=== PATIENT | female | born 1980 | race American Indian/Alaskan Native ===

== ENCOUNTER 2019-04-23 15:03 | Emergency (ER) | payer OTHER ==
[2019-04-23] MEDS ORDERED: OXYMETAZOLINE 0.05% NASAL SPRAY NS ONE ×2 (15:14→20:52)
[2019-04-23] MEDS ORDERED: LIDOCAINE 2%/EPINEPHRINE 1:200,000 VIAL (20 ML) INFILTRATI ONE (15:14)
[2019-04-23] MEDS ORDERED: OXYMETAZOLINE 0.05% NASAL SPRAY ONE (15:16)
--- NOTE | 2019-04-23 15:16 | Emergency Department Report ---
Chief Complaint: Nosebleed Stated Complaint: HEAVY NOSE BLEED Time Seen by Provider: 04/23/19 15:14 - HPI History of Present Illness: 38 y/o fem not p/w recurrent nose blled in rigth nostril seen at [facility] yesterday ? cauterized not on any blood thinners no hx of htn right nostril noted will pack with 2x2 afrin lido w epi tongue blade device applied to nasal bridge reassess counseled that she may require packing states not protecting airway MSE screening note: Focused history and physical exam performed. Due to findings the following was ordered: ED Disposition for MSE Condition: Stable
[2019-04-23] MEDS ORDERED: LIDOCAINE 2%/EPINEPHRINE 1:100,000 VIAL (20 ML) INFILTRATI ONE (15:18)
[2019-04-23 16:32] LABS: Hematocrit 37.8 % (30.3-42.9); Hemoglobin 12.5 gm/dl (10.1-14.3); Mean Corpuscular HGB Conc 33 % (30-34); Mean Corpuscular Volume 83 fl (79-97); Platelet Count 320 K/mm3 (140-440); Red Blood Count 4.58 M/mm3 (3.65-5.03); Red Cell Distribution Width 14.2 % (13.2-15.2)
[2019-04-23] MEDS ORDERED: amLODIPine 5 MG TAB PO ONE (20:53)
[2019-04-23] MEDS ORDERED: hydroCHLOROthiazide 25 MG TAB PO ONE (20:53)
--- NOTE | 2019-04-23 21:20 | Emergency Department Report ---
ED General Adult HPI - General Chief complaint: Nosebleed Stated complaint: HEAVY NOSE BLEED Time Seen by Provider: 04/23/19 15:14 Source: patient Mode of arrival: Ambulatory Limitations: No Limitations - History of Present Illness Initial comments: Patient presents to the emergency department with chief complaint of a nosebleed. Patient states she was recently at [facility] for nosebleed and they cauterized her nasal bleeding in the emergency department. She states at that time a blood pressure was severely elevated with the top nu mber been greater than 200. Patient states her blood pressure has been running high and does not have a diagnosis of hypertension. On her presentation to the emergency Department her blood pressure today was 198/123. She denies a headache, shortness breath, abdominal pain, chest pain. -: Sudden Severity scale (0 -10): 0 Improves with: none Worsens with: none Associated Symptoms: denies other symptoms Treatments Prior to Arrival: none - Related Data Previous Rx's Medication Instructions Recorded Last Taken Type amLODIPine [Norvasc] 10 mg PO DAILY #30 tab 04/23/19 Unknown Rx hydroCHLOROthiazide [Hctz] 12.5 mg PO QDAY #30 capsule 04/23/19 Unknown Rx Allergies Allergy/AdvReac Type Severity Reaction Status Date / Time No Known Allergies Allergy Unverified 04/23/19 15:39 ED Review of Systems ROS: Stated complaint: HEAVY NOSE BLEED Other details as noted in HPI Constitutional: denies: chills, fever Eyes: denies: eye pain, eye discharge, vision change ENT: epistaxis. denies: ear pain, throat pain Respiratory: denies: cough, shortness of breath, wheezing Cardiovascular: denies: chest pain, palpitations Endocrine: no symptoms reported Gastrointestinal: denies: abdominal pain, nausea, diarrhea Genitourinary: denies: urgency, dysuria, discharge Musculoskeletal: denies: back pain, joint swelling, arthralgia Skin: denies: rash, lesions Neurological: denies: headache, weakness, paresthesias Psychiatric: denies: anxiety, depression Hematological/Lymphatic: denies: easy bleeding, easy bruising ED Past Medical Hx - Past Medical History Previous Medical History?: No - Surgical History Past Surgical History?: No - Social History Smoking Status: Never Smoker Substance Use Type: None - Medications Home Medications: Home Medications Medication Instructions Recorded Confirmed Last Taken Type amLODIPine [Norvasc] 10 mg PO DAILY #30 tab 04/23/19 Unknown Rx hydroCHLOROthiazide [Hctz] 12.5 mg PO QDAY #30 capsule 04/23/19 Unknown Rx ED Physical Exam - General Limitations: No Limitations General appearance: alert, in no apparent distress - Head Head exam: Present: atraumatic, normocephalic - Eye Eye exam: Present: normal appearance - ENT ENT exam: Present: mucous membranes moist, other (active anterior nosebleed with clot formation sitting up) - Neck Neck exam: Present: normal inspection - Respiratory Respiratory exam: Present: normal lung sounds bilaterally. Absent: respiratory distress - Cardiovascular Cardiovascular Exam: Present: regular rate, normal rhythm. Absent: systolic murmur, diastolic murmur, rubs, gallop - GI/Abdominal GI/Abdominal exam: Present: soft, normal bowel sounds. Absent: distended, tenderness - Extremities Exam Extremities exam: Present: normal inspection - Back Exam Back exam: Present: normal inspection - Neurological Exam Neurological exam: Present: alert, oriented X3, CN II-XII intact. Absent: motor sensory deficit - Psychiatric Psychiatric exam: Present: normal affect, normal mood - Skin Skin exam: Present: warm, dry, intact, normal color. Absent: rash ED Course Vital Signs 04/23/19 04/23/19 04/23/19 15:13 18:27 20:20 Temperature 97.6 F Pulse Rate 131 H Respiratory 18 Rate Blood Pressure 198/123 Blood Pressure 157/108 [Left] O2 Sat by Pulse 98 99 Oximetry 04/23/19 04/23/19 04/23/19 20:30 20:45 21:00 Temperature Pulse Rate Respiratory Rate Blood Pressure 152/102 163/121 152/116 Blood Pressure [Left] O2 Sat by Pulse 100 98 99 Oximetry 04/23/19 21:15 Temperature Pulse Rate Respiratory Rate Blood Pressure 169/115 Blood Pressure [Left] O2 Sat by Pulse 98 Oximetry ED Medical Decision Making - Lab Data Result diagrams: 04/23/19 16:15 04/23/19 20:57 Lab Results 04/23/19 04/23/19 Range/Units 16:15 20:57 WBC 8.3 (4.5-11.0) K/mm3 RBC 4.58 (3.65-5.03) M/mm3 Hgb 12.5 (10.1-14.3) gm/dl Hct 37.8 (30.3-42.9) % MCV 83 (79-97) fl MCH 27 L (28-32) pg MCHC 33 (30-34) % RDW 14.2 (13.2-15.2) % Plt Count 320 (140-440) K/mm3 Sodium 139 (137-145) mmol/L Potassium 4.9 (3.6-5.0) mmol/L Chloride 103.9 (98-107) mmol/L Carbon Dioxide 19 L (22-30) mmol/L Anion Gap 21 mmol/L BUN 23 H (7-17) mg/dL Creatinine 0.6 L (0.7-1.2) mg/dL Estimated GFR > 60 ml/min BUN/Creatinine Ratio 38 % Glucose 87 (65-100) mg/dL Calcium 9.2 (8.4-10.2) mg/dL - Radiology Data Radiology results: report reviewed - Medical Decision Making Nosebleed resolved after Patient was given hypertensive medications Critical care attestation.: If time is entered above; I have spent that time in minutes in the direct care of this critically ill patient, excluding procedure time. ED Disposition Clinical Impression: Epistaxis, Hypertension Disposition: DC-01 TO HOME OR SELFCARE Is pt being admited?: No Does the pt Need Aspirin: No Condition: Stable Instructions: Hypertension (ED), Epistaxis (ED) Additional Instructions: Return if worse Referrals: LAWRENCE SALDIVAR MD [Primary Care Provider] - 3-5 Days Time of Disposition: 21:45
[2019-04-23 21:35] LABS: BUN/Creatinine Ratio 38; Blood Urea Nitrogen 23 mg/dL (7-17); Calcium 9.2 mg/dL (8.4-10.2); Hemolysis Index 34
[2019-04-23 22:17] VITALS: BP 170/98
== END 2019-04-23 22:17 | disposition home or self-care (01) ==
LOC: ED 15:03
DX: R04.0 Epistaxis (principal); I10 Essential (primary) hypertension; Z79.899 Other long term (current) drug therapy
CPT/HCPCS: 36415; 80048; 85027

== ENCOUNTER 2020-07-02 12:00 | Outpatient (CLI) | payer OTHER ==
[2020-07-02 07:31] VITALS: BP 213/122
== END 2020-07-02 23:59 | disposition home or self-care (01) ==
LOC: LAB 12:00
PROVIDERS: ATTEND Obstetrics & Gynecology
DX: Z01.812 Encounter for preprocedural laboratory examination (principal); Z20.822 Contact with and (suspected) exposure to COVID-19
CPT/HCPCS: 36415; 80048; 84703; 85025; U0003; G0378

== ENCOUNTER 2020-08-12 06:33 | Inpatient (IN) | payer OTHER ==
[2020-08-09 14:10] LABS: Eosinophils # (Auto) 0.1 K/mm3 (0.0-0.4); Eosinophils % (Auto) 1.7 % (0.0-4.3); Hematocrit 35.7 % (30.3-42.9); Hemoglobin 11.7 gm/dl (10.1-14.3); Lymphocytes # (Auto) 1.8 K/mm3 (1.2-5.4); Lymphocytes % (Auto) 43.3 % (13.4-35.0); Mean Corpuscular HGB Conc 33 % (30-34); Mean Corpuscular Volume 79 fl (79-97); Monocytes # (Auto) 0.4 K/mm3 (0.0-0.8); Monocytes % (Auto) 10.1 % (0.0-7.3); Platelet Count 317 K/mm3 (140-440); Red Blood Count 4.54 M/mm3 (3.65-5.03); Red Cell Distribution Width 18.7 % (13.2-15.2)
[2020-08-09 14:29] LABS: Blood Urea Nitrogen 16 mg/dL (7-17); Calcium 8.7 mg/dL (8.4-10.2); Hemolysis Index 8
[2020-08-09 14:55] LABS: BUN/Creatinine Ratio 23
--- NOTE | 2020-08-10 14:43 | History and Physical Report ---
History of Present Illness Date of examination: 08/09/20 History of present illness: Patient has been reassessed/reevaluated. H&P has been reviewed. No interval changes. This is a 40 years old female who presents with uterine fibroids. She complains of abdominal pain, abdominal pressure, pelvic pain, pelvic pressure and menorrhagia. Associated symptoms include dyspareunia. Prior to today's visit the patient has had US of pelvis and CT of pelvis. Patient's symptoms when present disrupts her normal daily activities Patient desires definitive treatment Patient previously had this surgery postponed due uncontrolled hypertension Since her last visit she has been treated and cleared for surgery by her PCP. Vital Signs: Patient Profile: 40 Years Old Female LMP: 07/19/2020 Height: 66 inches (167.64 cm) Weight: 182 pounds BMI: 29.37 Temp: 98.0 degrees F BP sittin / 80 (left arm) Menstrual History: LMP (date): 07/19/2020 Current Method of Contraception: None Date of Last Pap Smear: 05/07/2020 Past History : 4 Term Births: 2 Premature Births: 0 Living Children: 2 Para: 2 Mult. Births: 0 Prev : 0 Aborta: 2 Elect. Ab: 1 Spont. 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 of genital herpes: no Partner hx. of genital herpes: no Current Allergies (reviewed today): No known allergies Past Medical History: Fibroids Past Surgical History: D & C with EAB - not aware Family History Summary: General Comments - FH: No Family History of Breast Cancer No Family History of Cervical Cancer No Family History of Ovarvian Cancer No Family History of DVT/PE on OCP Social History: Patient is Smoking History: Patient has never smoked. Risk Factors: Smoked Tobacco Use: Never smoker Smokeless Tobacco Use: Never Passive smoke exposure: no Drug use: no HIV high-risk behavior: no Caffeine use: 0 drinks per day Alcohol use: yes Type: occ Exercise: no Seatbelt use: 100 % PAP Smear History: Date of Last PAP Smear: 05/07/2020 Review of Systems General Complains of fatigue. Denies fever, chills, sweats, anorexia, weakness, malaise, weight loss and sleep disorder. Complains of menorrhagia, pelvic pain and painful sex. Denies vaginal discharge, incontinence, dysuria, hematuria, urinary frequency, abnormal vaginal bleeding, genital sores, decreased libido, painful periods, urinary urgency, hot flashes, vaginal dryness, vaginal itching and vaginal odor. CV Denies chest pains, palpitations, syncope, dyspnea on exertion, orthopnea, PND and peripheral edema. Resp Denies cough, dyspnea at rest, excessive sputum, hemoptysis, wheezing and pleurisy. GI Denies nausea, vomiting, diarrhea, constipation, change in bowel habits, abdominal pain, melena, hematochezia, jaundice, gas/bloating, in digestion/heartburn, dysphagia and odynophagia. Breast Denies left breast lump, right breast lump, nipple discharge, bloody discharge from nipple, breast pain, abnormal mammogram and breast enlargement. Psych Denies depression, anxiety, irritability and mood swings. Medications and Allergies Allergies Allergy/AdvReac Type Severity Reaction Status Date / Time No Known Allergies Allergy Unverified 08/06/20 13:15 Home Medications Medication Instructions Recorded Confirmed Last Taken Type Acetaminophen 1,000 mg PO PRN 06/25/20 08/06/20 Unknown History Penicillin V Potassium 500 mg PO PRN 06/25/20 08/06/20 Unknown History NIFEdipine [Nifedipine ER] 30 mg PO DAILY 08/09/20 08/09/20 Unknown History carvediloL [Coreg] 25 mg PO BID 08/09/20 08/09/20 Unknown History Active Meds: Active Medications Cefazolin Sodium (Ancef/Sterile Water 2 Gm/20 Ml) 2 gm in 20 mls @ 80 mls/hr IV PREOP NR; Protocol Stop: 08/12/20 23:59 Exam - Physical Exam Narrative exam: HEENT: normocephalic, no lesions or deformities Skin no ulcers, xanthomas Chest: respiratory effort normal, clear to auscultation CV: regular, normal S1-S2, no murmur, no rub, no gallop Abdomen: soft, non-tender, no masses, bowel sounds normal Neuro: no gross anomalities Extremities: no clubbing, cyanosis, or edema 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 No evidence of cystocele or rectocele. Cervix: normal appearance, no lesions, no discharge Uterus: enlarged uterus 22-24 weeks in size Adnexae: Unable to palpate due to uterine size Rectovaginal: exam defered - Constitutional Vitals: Temp Pulse Resp BP Pulse Ox 99 F 82 20 140/86 98 08/09/20 13:40 08/09/20 13:40 08/09/20 13:40 08/09/20 13:40 08/09/20 13:40 Results - Labs CBC & Chem 7: 08/09/20 06:00 08/09/20 06:00 Labs: Abnormal lab results 08/09/20 Range/Units 06:00 Glucose 112 H (65-100) mg/dL Assessment and Plan - Patient Problems (1) Dysmenorrhea Current Visit: No Status: Acute Plan to address problem: Probably secondary to # 2 (2) Intramural leiomyoma of uterus Current Visit: No Status: Acute Plan to address problem: Diagnosis explained to patient . Questions answered. Discussed with patient various medical, surgical and radiological therapies common for treatment including expectant management, myomectomy hysterectomy and uterine artery embolization Patient's symptoms when present disrupts her normal daily activities. Patient desires definitive treatment Patient desires hysterectomy Discussed risks and benefits of laparotomy, laparoscopy, vaginal and robotic assisted approaches for hysterectomies Patient desires a total abdominal hysterectomy. Consent reviewed and signed . The risks and alternatives for this surgery were reviewed with the patient. Discuss the risks of the surgery including infec tion, bleeding possibly heavy enough to require a blood transfusion, possible damage to bowel, bladder or ureter. Patient understands if her ovaries are removed she will become menopausal. Her questions were answered. Patient understands and desires to proceed . (3) Menorrhagia Current Visit: No Status: Acute Qualifiers: Menorrhagia type: with regular cycle Qualified Code(s): N92.0 - Excessive and frequent menstruation with regular cycle Plan to address problem: Probably secondary to # 2 (4) Pelvic pain Current Visit: No Status: Acute Plan to address problem: Probably secondary to # 2
[~2020-08-12 06:33] MED LIST: ACETAMINOPHEN 500 MG TAB PO SCH; CELECOXIB 200 MG CAP PO NR; GABAPENTIN 300 MG CAP PO NR; LACTATED RINGERS 1,000 ML IV SCH; MIDAZOLAM 2 MG/2 ML INJ IV NR; SCOPOLAMINE TRANSDERMAL PATCH 72 HR TD NR; fentaNYL 100 MCG/2 ML INJ IV PRN
[2020-08-12] MEDS ORDERED: BUPIVACAINE/PF (0.25%) 2.5 MG/ML 30 ML VIAL INFILTRATI ONE ×2 (09:55→09:58)
[2020-08-12] MEDS ORDERED: ceFAZolin/Water 2 GM/20 ML 2 GM/20 ML SYRINGE IV NR (10:00)
--- NOTE | 2020-08-12 10:03 | Anesthesia Consultation ---
Anesthesia Consult and Med Hx Date of service: 08/12/20 - Airway Anesthetic Teeth Evaluation: Good ROM Head & Neck: Adequate Mental/Hyoid Distance: Adequate Mallampati Class: Class II Intubation Access Assessment: Probably Good - Pre-Operative Health Status ASA Pre-Surgery Classification: ASA2 Proposed Anesthetic Plan: General Nerve Block: TAP - Pulmonary Hx Smoking: Yes (former smoker) Hx Respiratory Symptoms: No - Cardiovascular System Hx Hypertension: Yes (now controlled, took antihypertensives this morning) - Central Nervous System CVA: No - Endocrine Hx Renal Disease: No Hx Liver Disease: No Hx Insulin Dependent Diabetes: No Hx Non-Insulin Dependent Diabetes: No Hx Thyroid Disease: No - Hematic Hx Anemia: Yes - Additional Comments Anesthesia Medical History Comments: PCP eval on chart.
--- NOTE | 2020-08-12 10:03 | Anesthesia Day of Surgery ---
Anesthesia Day of Surgery - Day of Surgery Patient Examined: Yes Patient H&P Reviewed: Yes Patient is NPO: Yes Beta Blockers: Yes
[2020-08-12] MEDS ORDERED: ONDANSETRON 4 MG/2 ML INJ IV PRN ×2 (10:30→16:12)
[2020-08-12] MEDS ORDERED: fentaNYL 100 MCG/2 ML INJ ONE (11:59)
[2020-08-12] MEDS ORDERED: propofoL 200 MG/20 ML VIAL IV ONE (12:00)
[2020-08-12] MEDS ORDERED: LIDOCAINE MPF (2%) 20 MG/1 ML VIAL 5 ML ONE ×2 (12:00→14:05)
[2020-08-12] MEDS ORDERED: ePHEDrine SULFATE 50 MG/1 ML INJ ONE (12:49)
[2020-08-12] MEDS ORDERED: LACTATED RINGERS 1,000 ML ONE (13:01)
[2020-08-12] MEDS ORDERED: CITRIC ACID-SOD CITRATE 500 ML IV ONE (13:09)
[2020-08-12] MEDS ORDERED: CITRIC ACID-SOD CITRATE SOLN 500 ML IV SOLN IV ONE (13:14)
[2020-08-12] MEDS ORDERED: SODIUM CHLORIDE 0.9% IRR 1,500 ML BOTTLE IR ONE (13:15)
[2020-08-12] MEDS ORDERED: KETOROLAC 30 MG/1 ML INJ ONE (14:00)
[2020-08-12] MEDS ORDERED: ROCURONIUM 50 MG/5 ML INJ IV ONE (14:05)
[2020-08-12] MEDS ORDERED: dexAMETHasone 20 MG/5 ML VIAL ONE (14:05)
[2020-08-12] MEDS ORDERED: NEOSTIGMINE 10MG/10 ML INJ MDV ONE (14:05)
[2020-08-12] MEDS ORDERED: ONDANSETRON 4 MG/2 ML INJ ONE (14:05)
[2020-08-12] MEDS ORDERED: GLYCOPYRROLATE 0.4 MG/2 ML INJ ONE ×2 (14:05→14:06)
--- NOTE | 2020-08-12 14:33 | Operative Report ---
Operative Report Operative Report: Date of procedure: August 12, 2020 Pre-operative diagnosis: Symptomatic leiomyomata with menorrhalgia dysmenorrhea pelvic pain and anemia Post-operative diagnosis: Same Procedure name(s): Total Adominal hysterectomy with bilateral salpingectomy Surgeon: Yousuf Matthews MD Lime Hide Inspector: Nu Rivero, certified ophthalmic technician Anesthesia: General EBL: 600 cc. 250 cc returned via Cell Saver Complications: None Findings: Uterus approximately 18 weeks in size with multiple leiomyomata very vascular with normal-appearing tubes and ovaries bilaterally Specimen(s): Uterus with cervix with bilateral fallopian tubes Procedure: Patient was brought into the operating room where general anesthesia was induced difficulty. She was placed in supine position. Prepped and draped in the usual sterile manner. A Pfannenstiel incision was made with a scalpel. This incision was taken out and the fascia. The fascia was nicked in the midline and this incision was extended laterally with Wilkinson scissors. The fascia was then from the rectus muscles both caudally and cephalically. The peritoneum was entered by grasping with hemostat and lifted high and cut with Metzenbaum scissors. No evidence of internal organ damage was noted. This incision was extended vertically. Patient was placed in Trendelenburg position. No evidence of damage to the bladder. An O'Teodoro O'Smith self-retaining retractor was then placed incision. The bowel was packed out of the operative field. With the findings as noted above. The uterine fundus was then grasped with a tenaculum. Starting on the patient's right side the fallopian tube was grasped with a Markos and starting from its distal and the mesosalpinx was clamped cauterized and cut with the Enseal device. Upon reaching the area near the uterine ovarian complex this complex was then cauterized and cut. This was followed by cauterizing cutting the round ligament. Anteriorly the bladder flap was formed. The uterine vessels were then skeletonized, clamped, cauterized and cut using the Enseal device. The same procedure was then performed on the patient's left side. With the bladder flap pushed away further and the left uterine vessels clamped and cut. Again the bladder was pushed away and the clamp uterine vessels on the right side were cauterized and cut. Progressively the uterine vasculature were clamped with a straight Pamela clamp and cut until the sacrouterine ligaments were reached on each side. Again pushed away the bladder curved Pamela clamps were placed across the top of the vaginal cuff. The specimen cut away from the vaginal cuff. The specimen was inspected and found to have complete removal of the cervix. The vaginal cuff was close starting with Loretta stitches at each corner. With interrupted [id number] sutures completing the closure midline. The pelvis was then copiously irrigated all pedicles were found to be hemostatic. The ureters were identified bilaterally and found to be functioning normally. Alea was placed along the vaginal cuff for postoperative hemostasis all instruments were then removed. The rectus muscles were approximated with 0 Vicryl. The rectus muscles were inspected and found to be hemostatic after irrigation and Bovie. The fascia was then closed in a running manner with 0 Vicryl. This closure was hemostatic at the irrigation and Bovie. The skin was then reapproximated subcuticularly with 4-0 Monocryl. The patient tolerated the procedure well. She was awakened in the operating room. Accompanied to recovery room in good condition. Instrument count correct x3
[2020-08-12] MEDS: HYDROmorphone 1 MG/1 ML INJ IV PRN ×2 (15:10→15:20)
[2020-08-12] MEDS ORDERED: ACETAMINOPHEN 325 MG TAB PO PRN (16:12)
[2020-08-12] MEDS ORDERED: MAGNESIUM HYDROXIDE (MOM) ORAL LIQD UDC PO PRN (16:12)
--- NOTE | 2020-08-12 16:40 | Post Anesthesia Evaluation ---
- Post Anesthesia Evaluation Patient Participated: Yes Airway Patent: Yes Stable Respiratory Function: Yes Nausea/Vomiting: No Temp > 96.8F: Yes Pain Manageable: Yes Adequeate Hydration: Yes Anesthesia Complications: No
--- NOTE | 2020-08-12 17:56 | Event Note ---
Date: 08/12/20 Day of surgery. Discuss operative findings and the need for Cell Saver 250 cc return with patient and questions answered. Patient without fever. Will have up in a chair this evening good urine output. We will continue routine postoperative care. We will check H&H this evening.
[2020-08-12] MEDS: ceFAZolin/NS 1 GM/50 ML 1 GM/50 ML BAG IV SCH (18:11)
[2020-08-12] MEDS: oxyCODONE /ACETAMINOPHEN 5-325MG TAB PO PRN (18:15)
[2020-08-12 19:02] LABS: Hematocrit 36.6 % (30.3-42.9); Hemoglobin 12.2 gm/dl (10.1-14.3)
[2020-08-12] MEDS: D5W/LACTATED RINGERS 1,000 ML IV SCH (21:00)
[2020-08-12] MEDS: carvediloL 25 MG TAB PO SCH (21:07)
[2020-08-12] MEDS: DOCUSATE SODIUM 100 MG CAP PO SCH (21:08)
[2020-08-13] MEDS: ceFAZolin/NS 1 GM/50 ML 1 GM/50 ML BAG IV SCH (01:33)
[2020-08-13] MEDS: oxyCODONE /ACETAMINOPHEN 5-325MG TAB PO PRN ×3 (03:31→15:21)
[2020-08-13] MEDS: D5W/LACTATED RINGERS 1,000 ML IV SCH (04:27)
[2020-08-13] MEDS ORDERED: hydrALAZINE 20 MG/1 ML INJ IV ONE (04:33)
[2020-08-13 08:07] LABS: Hematocrit 33.9 % (30.3-42.9); Hemoglobin 11.2 gm/dl (10.1-14.3)
[2020-08-13] MEDS: DOCUSATE SODIUM 100 MG CAP PO SCH ×2 (09:01→21:55)
[2020-08-13] MEDS: carvediloL 25 MG TAB PO SCH ×2 (09:01→21:55)
[2020-08-13] MEDS: NIFEdipine XL 30 MG TAB PO SCH (09:01)
--- NOTE | 2020-08-13 09:28 | Progress Note ---
Assessment and Plan - Patient Problems (1) Status post total abdominal hysterectomy Current Visit: Yes Status: Acute Plan to address problem: Postoperative day #1. Discuss operative findings with patient and questions answered. Patient without fever. We'll ambulate in halls. We will continue routine postoperative care. Patient's postoperative hematocrit is 33.9%. Will advance diet. (2) Dysmenorrhea Current Visit: No Status: Acute (3) Intramural leiomyoma of uterus Current Visit: No Status: Acute (4) Menorrhagia Current Visit: No Status: Acute Qualifiers: Menorrhagia type: with regular cycle Qualified Code(s): N92.0 - Excessive and frequent menstruation with regular cycle (5) Pelvic pain Current Visit: No Status: Acute Subjective Date of service: 08/13/20 Patient Reports: Positive: feels better, still having pain, pain is less, tolera ting liquids well, no flatus, no bowel movement, afebrile, other (Patient has Vee catheter recently removed). Negative: vomiting Objective Vital Signs - 12hr 08/12/20 08/13/20 08/13/20 23:53 04:00 04:29 Temperature 98.6 F Pulse Rate 77 78 78 Respiratory 20 Rate Blood Pressure 168/99 166/101 Blood Pressure 184/106 [Left] O2 Sat by Pulse 97 Oximetry 08/13/20 08/13/20 08/13/20 05:10 05:20 05:25 Temperature Pulse Rate 91 H 84 82 Respiratory Rate Blood Pressure Blood Pressure 154/86 157/89 156/89 [Left] O2 Sat by Pulse 96 97 98 Oximetry 08/13/20 08/13/20 08/13/20 05:35 06:30 07:55 Temperature 98.2 F Pulse Rate 83 79 78 Respiratory 18 18 Rate Blood Pressure 157/88 Blood Pressure 157/88 144/76 [Left] O2 Sat by Pulse 98 98 95 Oximetry 08/13/20 09:01 Temperature Pulse Rate 80 Respiratory 16 Rate Blood Pressure 159/84 Blood Pressure [Left] O2 Sat by Pulse Oximetry - General physical appearance well developed - Respiratory normal respiratory effort - Abdomen soft, tender (Appropriately postop day 1), bowel sounds hypoactive, distended (Slightly), surgical scars (Healing well without any evidence of infection) - Integumentary no rash, no growths, no abnormal pigmentation - Psychiatric oriented to time, oriented to person, oriented to place, speech is normal, charles ry intact - Labs 08/13/20 07:15 08/09/20 06:00
[2020-08-13] MEDS ORDERED: IBUPROFEN 800 MG TAB PO PRN (14:35)
--- NOTE | 2020-08-13 16:53 | Event Note ---
Date: 08/13/20 Patient vital signs stable she is afebrile tolerating regular food just states she did not like the taste of meal given in the hospital. We will continue routine care encourage ambulation. Patient continues to be stable will discharge tomorrow.
[2020-08-13] MEDS ORDERED: SIMETHICONE 80 MG CHEW TAB PO ONE (22:45)
[2020-08-14] MEDS: oxyCODONE /ACETAMINOPHEN 5-325MG TAB PO PRN ×3 (01:04→14:07)
[2020-08-14] MEDS: DOCUSATE SODIUM 100 MG CAP PO SCH (09:09)
[2020-08-14] MEDS: carvediloL 25 MG TAB PO SCH (09:09)
[2020-08-14] MEDS: NIFEdipine XL 30 MG TAB PO SCH (09:09)
--- NOTE | 2020-08-14 12:05 | Progress Note ---
Assessment and Plan - Patient Problems (1) Status post total abdominal hysterectomy Current Visit: Yes Status: Acute Plan to address problem: Patient doing well but desires medication for gas patient desires suppository. H&H stable she has no orthostatic symptoms. We will give Dulcolax with the expectation of patient being discharged this afternoon. (2) Dysmenorrhea Current Visit: No Status: Acute (3) Intramural leiomyoma of uterus Current Visit: No Status: Acute (4) Menorrhagia Current Visit: No Status: Acute Qualifiers: Menorrhagia type: with regular cycle Qualified Code(s): N92.0 - Excessive and frequent menstruation with regular cycle (5) Pelvic pain Current Visit: No Status: Acute Subjective Date of service: 08/14/20 Patient Reports: Positive: no new complaints, feels better, still having pain, pain is less, tolerating a regular diet, voiding w/o difficulty, flatus, afebrile, other (Patient complains of gas pain and desires medication) Objective Vital Signs - 12hr 08/14/20 08/14/20 08/14/20 02:23 05:06 08:00 Temperature 98.2 F 98.0 F 98.0 F Pulse Rate 68 69 Respiratory 20 20 18 Rate Blood Pressure 151/83 118/60 Blood Pressure 139/81 [Left] O2 Sat by Pulse 97 97 Oximetry - General physical appearance well developed, well nourished, no distress - Respiratory normal respiratory effort - Abdomen soft (Very), tender (Appropriate), bowel sounds normal, surgical scars (Healing well) - Integumentary no rash, no growths, no abnormal pigmentation - Labs 08/13/20 07:15 08/09/20 06:00
--- NOTE | 2020-08-14 16:05 | Discharge Summary ---
Providers - Providers Date of Admission: 08/12/20 09:02 Date of discharge: 08/14/20 Attending physician: DAVEY POON Primary care physician: LAWRENCE SALDIVAR Hospitalization Reason for admission: Symptomatic leiomyomata with dysmenorrhea and menorrhagia Condition: Good Procedures: Total abdominal hysterectomy with bilateral salpingectomy Hospital course: Patient was admitted and underwent above procedure without complications. Her post operative course was benign she was afebrile throughout. Patient postop erative day 1 hematocrit was in an acceptable range. Patient had no orthostatic symptoms. Patient was tolerating regular diet, ambulating well with flatus and bowel movement and voiding without difficulty at time of discharge. Patient incision was healing well without evidence of infection. Disposition: DC- TO HOME OR SELFCARE Final Discharge Diagnosis (Prints w/discharge instructions): Symptomatic leiomyomata Time spent for discharge: 15 minutes - Discharge Diagnoses (1) Status post total abdominal hysterectomy Status: Acute (2) Dysmenorrhea Status: Acute (3) Intramural leiomyoma of uterus Status: Acute (4) Menorrhagia Status: Acute Qualifiers: Menorrhagia type: with regular cycle Qualified Code(s): N92.0 - Excessive and frequent menstruation with regular cycle (5) Pelvic pain Status: Acute Core Measure Documentation - Palliative Care Palliative Care/ Comfort Measures: Not Applicable - Core Measures Any of the following diagnoses?: none Exam - Constitutional Vitals: Temp Pulse Resp BP Pulse Ox 98.0 F 69 18 139/81 97 08/14/20 08:00 08/14/20 08:00 08/14/20 08:00 08/14/20 08:00 08/14/20 08:00 General appearance: Present: no acute distress - Respiratory Respiratory effort: normal - Cardiovascular Rhythm: regular - Extremities Extremities: no ischemia - Abdominal General gastrointestinal: Present: soft, tender (Appropriately postop), normal bowel sounds, other (Incision healing well). Absent: distended Female genitourinary: Present: deferred - Integumentary Integumentary: Present: clear, warm, dry - Musculoskeletal Musculoskeletal: strength equal bilaterally - Psychiatric Psychiatric: appropriate mood/affect, intact judgment & insight - Neurologic Neurologic: moves all extremities Plan Activity: advance as tolerated Diet: regular Wound: open to air Additional Instructions: Patient office for fever chills nausea vomiting or pain uncontrolled by pain relief. Patient instructed no heavy lifting x6 weeks. No sex for 6 weeks. Follow up with: LAWRENCE SALDIVAR MD [Primary Care Provider] - 7 Days Forms: [facility] Discharge Summary Prescriptions: Ferrous Sulfate [Feosol 325 MG tab] 325 mg PO BID #60 tablet Ibuprofen [Motrin] 800 mg PO TID PRN #30 tablet PRN Reason: Pain oxyCODONE /ACETAMINOPHEN [Percocet 5/325 mg] 1 - 2 tab PO Q6HR PRN #20 tablet PRN Reason: Pain
[2020-08-14 16:30] VITALS: BP 144/80
== END 2020-08-14 18:00 | disposition home or self-care (01) | DRG 743 ==
LOC: 3A 09:02 → OB 14:53
PROVIDERS: ADMIT Obstetrics & Gynecology; ATTEND Obstetrics & Gynecology
PROC: 0UT90ZZ Resection of Uterus, Open Approach (ICD-10-PCS; principal; 2020-08-12)
PROC: 0UB70ZZ Excision of Bilateral Fallopian Tubes, Open Approach (ICD-10-PCS; 2020-08-12)
DX: D25.1 Intramural leiomyoma of uterus (principal); N92.0 Excessive and frequent menstruation with regular cycle; R10.2 Pelvic and perineal pain; N94.6 Dysmenorrhea, unspecified; Z87.891 Personal history of nicotine dependence; Z20.822 Contact with and (suspected) exposure to COVID-19; I10 Essential (primary) hypertension
CPT/HCPCS: 36415; 64450; 80048; 84703; 85014; 85018; 85025; 88307; G0378; J0360; J0690; J1100; J1170; J1885; J2250; J2405; J2704; J2710; J3010; J7120; J7121; U0003